=== PATIENT | female | born 1965 | race Caucasian/White ===

== ENCOUNTER → 2017-01-01 | Outpatient (CLI) | payer BC ==
--- NOTE | 2017-01-01 14:43 | MAMMOGRAPHY REPORT ---
UNILATERAL RIGHT DIGITAL DIAGNOSTIC MAMMOGRAM TOMOSYNTHESIS WITH CAD: 01/01/2017 CLINICAL HISTORY: Six-month follow-up of right breast calcifications. The patient also reports inter mittent tenderness in the right upper outer quadrant, which she does not have currently. She denies a ny palpable lumps. TECHNIQUE: Breast tomosynthesis in addition to standard 2D mammography was performed. Current study was also evaluated with a Computer Aided Detection (CAD) system. Right CC and MLO 2-D and tomosynthe sis images and spot magnification right cc and ML views were obtained. COMPARISON: Comparison is made to exams dated: 07/03/2016 mammogram, 06/24/2016 mammogram, 08/29/2015 m ammogram, 08/21/2015 ultrasound, 06/18/2015 mammogram, and 06/08/2013 mammogram - [facility]. BREAST COMPOSITION: The tissue of the right breast is extremely dense, which lowers the sensitivity of mammography. FINDINGS: Spot magnification views of the right breast again demonstrate grouped faint calcification s in the right upper outer quadrant posteriorly. The calcifications are not significantly changed co mpared to spot magnification views dated 07/03/2016, and also appear stable compared to the full field MLO view from the 06/02/2012 exam. Given the long-term stability, the calcifications are considered benign. The remainder of the right breast is stable compared to prior exams, without suspicious masses, calci fications, or areas of architectural distortion noted. Other scattered benign-appearing calcificatio ns are stable, including a small cluster of calcifications in the right upper outer quadrant middle d epth which is stable dating back to at least the 2007 exam. IMPRESSION: ACR BI-RADS CATEGORY 2: BENIGN Grouped calcifications in the right upper outer quadrant posteriorly are stable dating back to the 15 07 exam, and are considered benign given long-term stability. There is no mammographic evidence of m alignancy. Return to routine annual mammogram screening schedule is recommended, due May 2017. Also recommend clinical follow-up for intermittent right breast pain. The patient has been verbally notified of the results. Approximately 10% of breast cancers are not detected with mammography. A negative mammographic report should not delay biopsy if a clinically suggestive mass is present. Angela Castillo M.D. ah/:01/01/2017 11:05:40 Mba Internship: Vicenta Andrews RT(R)(M), [facility] letter sent: Normal /2 BI-RADS Code: ACR BI-RADS Category 2: Benign
== END | disposition home or self-care (01) ==
LOC: C.MAMM 10:34
PROVIDERS: ATTEND Obstetrics & Gynecology
DX: R92.1 Mammographic calcification found on diagnostic imaging of breast (principal)

== ENCOUNTER → 2017-06-26 | Outpatient (CLI) | payer BC ==
--- NOTE | 2017-06-26 13:54 | MAMMOGRAPHY REPORT ---
BILATERAL DIGITAL SCREENING MAMMOGRAM TOMOSYNTHESIS WITH CAD: 06/26/2017 CLINICAL HISTORY: Routine screening. Patient has no complaints. TECHNIQUE: Breast tomosynthesis in addition to standard 2D mammography was performed. Current study was also evaluated with a Computer Aided Detection (CAD) system. COMPARISON: Comparison is made to exams dated: 01/01/2017 mammogram, 06/24/2016 mammogram, 07/03/2016 m ammogram, 08/29/2015 ultrasound biopsy, 08/29/2015 mammogram, and 08/21/2015 ultrasound - [facility]. BREAST COMPOSITION: The tissue of both breasts is extremely dense, which lowers the sensitivity of m ammography. FINDINGS: No suspicious masses, calcifications, or areas of architectural distortion are noted in ei ther breast. There has been no significant interval change compared to prior exams. Bilateral benign -appearing calcifications are not significantly changed. Asymmetry with an associated biopsy marker clip in the left superior breast on the MLO view is stable compared to prior exams. IMPRESSION: ACR BI-RADS CATEGORY 2: BENIGN There is no mammographic evidence of malignancy. A 1 year screening mammogram is recommended. The pa tient will receive written notification of the results. Approximately 10% of breast cancers are not detected with mammography. A negative mammographic report should not delay biopsy if a clinically suggestive mass is present. Angela Castillo M.D. /:06/26/2017 07:45:34 Newspaper Carrier: Zoey Chowdhury [facility] letter sent: Normal 1/2 BI-RADS Code: ACR BI-RADS Category 2: Benign
== END | disposition home or self-care (01) ==
LOC: C.MAMM 07:17
PROVIDERS: ATTEND Obstetrics & Gynecology
DX: Z12.31 Encounter for screening mammogram for malignant neoplasm of breast (principal)

== ENCOUNTER 2018-10-03 13:05 | Inpatient (IN) ==
[2018-10-03] MEDS ORDERED: ACETAMINOPHEN 325 MG TAB PO PRN (13:57)
[2018-10-03] MEDS ORDERED: MAGNESIUM HYDROXIDE SUSP 30 ML UDC PO PRN (13:57)
[2018-10-03] MEDS ORDERED: ONDANSETRON INJ 2 MG/ML 2 ML VIAL IV PRN (13:57)
[2018-10-03] MEDS ORDERED: SODIUM CHLORIDE 0.9% 1000ML 1,000 ML IV SCH (14:00)
[2018-10-03 15:22] LABS: BUN Creatinine Ratio 16.5 (10-20); Creatinine Clr Calc Pharmacy 68.3 ml/min; Est GFR (African American) 102.3; Est GFR (Non-African American) 88.3; Magnesium 1.9 mg/dl (1.8-2.4); Phosphorus 3.1 mg/dl (2.5-4.9); Potassium 3.9 mmol/L (3.5-5.1)
[2018-10-03 15:56] LABS: Beta-Hydroxybutyrate 100.6 mg/dl (0.2-2.81)
[2018-10-03] MEDS ORDERED: SODIUM CHLORIDE 0.45 % 1,000 ML IV SCH (16:00)
[2018-10-03] MEDS ORDERED: PENDING 1/2NSS+40mEq KCL IVF SCH (16:00)
[2018-10-03] MEDS ORDERED: PENDING D5 1/2NS+40mEq KCL IVF SCH (16:00)
[2018-10-03] MEDS ORDERED: PHARMACY GLYCEMIC MGMT CONSULT PRN (16:16)
[2018-10-03] MEDS ORDERED: INSULIN REGULAR 250 UNITS in SODIUM CHLORIDE 0.9% 247.5 ML IV SCH (16:30)
[2018-10-03] MEDS ORDERED: INSULIN HUMAN REGULAR BOLUS IV ONE (16:30)
[2018-10-03 18:31] LABS: BUN Creatinine Ratio 13.7 (10-20); Calcium 8.4 mg/dl (8.5-10.1); Creatinine Clr Calc Pharmacy 70.1 ml/min; Est GFR (African American) 105.7; Est GFR (Non-African American) 91.2; Magnesium 1.7 mg/dl (1.8-2.4); Potassium 3.6 mmol/L (3.5-5.1)
[2018-10-03 18:35] LABS: Phosphorus 1.9 mg/dl (2.5-4.9)
[2018-10-03] MEDS: INSULIN ASPART 100 UNITS/ML 3 ML PEN SC SCH ×2 (18:37→20:44)
--- NOTE | 2018-10-03 19:04 | History & Physical Report ---
Date of Service October 03, 2018 Assessment & Plan (1) DKA (diabetic ketoacidoses): New onset DM A1c pending Reported A1c in 2018 was 5.[address] Schaffer reported UA with 3+ ketones and glucose DKA protocol A1c pending Serial PRP, Mg, Phos Elevated BHA DM education History of Present Illness Primary Care Provider: Suri Farfan, BANK VAULT CLERK 53 y/o F who was sent here by Dr. Schaffer after being seen in the office today and c/o DKA with new onset DM. Pt has been having increased UOP for about 2 weeks. She has been having dry mouth with increased thirst as well. She tried special mouth wash for dry mouth and no help. She has been very fatigued and with decreased ability to do her usual level of work. She has lost 10 lbs in the last month. Pt generally has very good vision s/p Lasix surgery in 2002. She has noted her L eye was having blurred vision most of the time and occasionally her R eye. She was seem by optometry on 09/02 and told there was some sort of retinal issue at that time. She has not had headache, lightheadedness, dizziness, abd pain, n/v/d. She has had minimal appetite. She finally decided to go into the walk in clinic today after she noted ear fullness. It was noted that she had fruity breath. A UA showed glucose and ketones. She was sent to the hospital at that point. Pt is s/p IVF. Insulin has not been started yet. She notes that her ear full ness is resolved. Dr. Schaffer states her exam was WNL. She is still with increased thirst and dry mouth. She has urinated several times. Allergies Allergy/AdvReac Type Severity Reaction Status Date / Time No Known Allergies Allergy Unverified 10/03/18 13:28 Home Medications Home Medications Medication Instructions Recorded Confirmed Type multivitamin 1 tab PO DAILY 10/03/18 10/03/18 History Past Med/Surg History Social History Preferred Language: British Communication Ability: Effective Maritime Officer Required: No Beliefs That Will Affect Care: None Current Living Situation: Spouse Other Information That Helps Us Care for You: No Feels Safe at Home: Yes Safety Concerns: Feels Safe At This Time Smoking Status: Never smoker Hx Alcohol Use: No Hx Substance Use: No Review of Systems Pertinent positives and negatives reviewed in HPI--all others negative Physical Exam Vital Signs (Past 24 Hours): Last Vital Signs Temp 36.5 C 10/03/18 13:23 Pulse 100 H 10/03/18 13:23 Resp 18 10/03/18 13:23 BP 153/92 H 10/03/18 13:23 Pulse Ox 100 10/03/18 13:23 Constitutional: WD/WN, vitals as above Eyes: normal visual garcia by confrontation and + anicteric sclerae Neck: normal visual inspection and trachea midline Respiratory: normal respiratory effort, lungs clear to auscultation Cardiovascular: Rate/Rhythm: regular rate and regular rhythm Gastrointestinal (Abdomen): Inspection/Auscultation: abdomen not distended Percussion/Palpation: abdomen soft; abdomen nontender Musculoskeletal: Head/Neck/Chest: normocephalic and head atraumatic negative for edema, peripheral pulses intact Skin: no rashes, warm and dry Neurologic: awake; not confused Speech / Cognition: normal speech Psychiatric: A+Ox3, euthymic affect Code Status & VTE Plan Code Status Full code VTE Prophylaxis Plan VTE Prophylaxis will be ordered: Yes
[2018-10-03] MEDS: D5W AND 1/2NSS + 40MEQ KCL 40 MEQ/1,000 ML BAG IV SCH (20:48)
[2018-10-03 21:25] LABS: BUN Creatinine Ratio 15.2 (10-20); Calcium 8.1 mg/dl (8.5-10.1); Creatinine Clr Calc Pharmacy 79.8 ml/min; Est GFR (African American) 115.8; Est GFR (Non-African American) 99.9; Magnesium 1.7 mg/dl (1.8-2.4); Potassium 3.1 mmol/L (3.5-5.1)
[2018-10-04 02:42] LABS: BUN Creatinine Ratio 13.4 (10-20); Calcium 7.9 mg/dl (8.5-10.1); Creatinine Clr Calc Pharmacy 75.2 ml/min; Est GFR (African American) 113.6; Magnesium 1.6 mg/dl (1.8-2.4); Phosphorus 2.1 mg/dl (2.5-4.9); Potassium 3.7 mmol/L (3.5-5.1)
[2018-10-04] MEDS ORDERED: INSULIN GLARGINE SOLOSTAR 100 UNITS/ML 3 ML PEN SC ONE (03:30)
[2018-10-04] MEDS: D5W AND 1/2NSS + 40MEQ KCL 40 MEQ/1,000 ML BAG IV SCH (03:47)
[2018-10-04 06:45] LABS: Estimated Average Glucose 324 mg/dl; Hemoglobin A1C 12.9 % (4.5-5.6)
[2018-10-04] MEDS ORDERED: POTASSIUM CHLORIDE 40 MEQ in SODIUM CHLORIDE 0.9% 1000ML 1,000 ML IV SCH (07:00)
[2018-10-04 07:31] LABS: BUN Creatinine Ratio 13.9 (10-20); Calcium 7.7 mg/dl (8.5-10.1); Creatinine Clr Calc Pharmacy 84.8 ml/min; Est GFR (African American) 117.7; Est GFR (Non-African American) 101.5; Magnesium 1.6 mg/dl (1.8-2.4); Phosphorus 2.3 mg/dl (2.5-4.9); Potassium 4.1 mmol/L (3.5-5.1)
[2018-10-04] MEDS: INSULIN ASPART 100 UNITS/ML 3 ML PEN SC SCH ×2 (08:11→11:56)
[2018-10-04] MEDS ORDERED: CLOTRIMAZOLE 10 MG TROCHE BUCCAL STA (09:45)
--- NOTE | 2018-10-04 12:58 | Discharge Summary ---
Date of Service October 04, 2018 Admission HPI Per Admitting Provider 53 y/o F who was sent here by Dr. Schaffer after being seen in the office today and c/o DKA with new onset DM. Pt has been having increased UOP for about 2 weeks. She has been having dry mouth with increased thirst as well. She tried special mouth wash for dry mouth and no help. She has been very fatigued and with decreased ability to do her usual level of work. She has lost 10 lbs in the last month. Pt generally has very good vision s/p Lasix surgery in 2002. She has noted her L eye was having blurred vision most of the time and occasionally her R eye. She was seem by optometry on 09/02 and told there was some sort of retinal issue at that time. She has not had headache, lightheadedness, dizziness, abd pain, n/v/d. She has had minimal appetite. She finally decided to go into the walk in clinic today after she noted ear fullness. It was noted that she had fruity breath. A UA showed glucose and ketones. She was sent to the hospital at that point. Pt is s/p IVF. Insulin has not been started yet. She notes that her ear fullness is resolved. Dr. Schaffer states her exam was WNL. She is still with increased thirst and dry mouth. She has urinated several times. Principal Diagnosis DKA Discharge Exam Constitutional WD/WN, vitals as above Respiratory normal respiratory effort, lungs clear to auscultation Cardiovascular RRR, no murmur, no edema Gastrointestinal (Abdomen) normal bowel sounds, soft, nontender, no hepatosplenomegaly Skin no rashes, warm and dry Psychiatric Orientation: alert and oriented x 3 Eye Contact: + fair eye contact Affect: + tearful affect Discharge Data Allergies Allergy/AdvReac Type Severity Reaction Status Date / Time No Known Allergies Allergy Unverified 10/03/18 13:28 Consultations 10/03/18 13:58 Consult Case Management - Discharge Planning Routine Hospital Course (1) DKA (diabetic ketoacidoses): 53 y/o F sent for direct admission by PCP office for concern of new onset diabetes (reported A1c in 2018 - 5.9). Dr. Schaffer from PCP office reported UA with 3+ ketones and glucose New onset DM with h/o glucose intolerance DKA Noted to have anion gap of 18 with BSG in 347 and Bhydroxybutyrate in 100. Was kept on IV insulin drip and next morning switched to SQ insulin. Will need to follow the course for assessment of whether this is type 1 or type 2. Labs for antibodies, insulin and C peptite levels were not drawn while she was hospitalized Patient very distraught with the diagnosis. Sent home on only basal insulin - 12 units of insulin glargine, glucometer. May need log insulin with meals but not prescribed on discharge as patient seemed overwhelmed at this time to be able to manage all of the needle sticks. Diabetes education done. PCP office care trainer informed and they will be in touch with patient for further education. F/u with pcp in 2 days. Total Time Total Time Spent Total Time Spent (In Minutes): 35 min Discharge Plan Discharge Items Patient Disposition: Home - Self-Care Reason For Visit: DKA Discharge Diagnosis: DKA, New onset Diabetes Discharge Goals: Improve disease control Activity: Resume your previous activity Non-emergency contact: Primary Care Provider Call non-emergency contact if: you have any medication questions Follow-up/Referrals: Suri Farfan CRNP [Primary Care Provider] - Diet: Carb Consistent or DM2 Addtl Provider Instructions: You were admitted for concern of new onset diabetes. Your blood sugars were elevated and you were put on insulin drip here. Your Hemoglobin A1c came at 12. You are being discharged home on insulin which you will give under your skin. Try to stay on a diet with same calories and containing high protein, fat and complex carbohydrate. You will need to check your blood sugar daily first thing in the morning before eating anything and then give yourself the insulin shot. If your blood sugar is lower than 80 - you should cut down the dose of insulin by 4 units. If you blood sugar is higher than 175 in the morning, you will require more insulin but you should contact the doctors office before increasing your insulin dose. You have a follow up appointment at the office with Dr. Chavez on 10/06/18 at 12.50pm. Prescriptions: New Basaglar KwikPen U-100 Insulin 100 unit/mL (3 mL) insulin pen 12 units SQ DAILY Qty: 15 RF: 0 nystatin 100,000 unit/mL suspension 1 ml PO QID 14 Days Qty: 56 RF: 0 Continued multivitamin Tablet 1 tab PO DAILY RF: 0 Stand-Alone Forms: [facility] Discharge Orders: Discharge Order (Routine); Ordered 10/04/18 Ordered By: Sherry Uribe Admission Data Admit Date/Time: 10/03/18 13:10 Attending Provider: Sherry Uribe Admit Provider: Elva Mckeon Primary Care Provider: Suri Farfan Other Providers: Goldy Campbell Service: Telemetry Other Interventions: Discharge Summary Assessment (RN) Last Done: 10/04/18 09:36 DC Date/Time DO NOT enter until pt leaves facility: 10/04/18 12:53
--- NOTE | 2018-10-04 17:59 | Medical Student Progress Note ---
Date of Service October 04, 2018 Assessment & Plan (1) DKA (diabetic ketoacidoses): Assessment: Patient is a 53-year-old female, with no significant PMH, who presented to the [facility] for ear fullness but, on exam, was found to have 3+ ketones/glucose in urine, anion gap of 18, BSG of 347, and BHA of 100 which prompted admission to the hospital for further work-up and treatment. Plan: 1. DKA * New onset DM * A1C is pending (reported A1C was 5.9 in 2018) * DKA protocol - was kept on IV insulin drip and switched to SQ insulin this morning * Discharged home with basal insulin (12 units of insulin glargine) and glucometer * DM Education - completed in hospital * F/U in outpatient clinic - assessment for type 1 vs. type 2, continued DM education Patient seemed very distraught with diagnosis, so only limited information was able to be shared at this time. Subjective Patient is a 53-year-old female, with no significant PMH, who presented to the ED on 10/03/[address] Schaffer who was concerned about new onset diabetes and possible DKA. For the past two weeks, the patient has noticed increased urine production, thirst, fatigue, and dry mouth. She has also noticed a 10 lb weight loss, in addition to some blurry vision bilaterally. After seeing an manager behavioral, who noted some "retinal changes," she decided to go to the [facility]. At the time, she was also having ear fullness. Upon pr esentation, Dr. Schaffer noticed that the patient's breath smelled fruity and, after completing a full history and urinalysis (3+ ketones, glucose), decided to send the patient to the hospital for further diabetes/DKA work-up. Today, the patient is reporting that she is still uncomfortable. She notes that her ear fullness has resolved, but that she is still very thirsty, has a dry mouth, is fatigued, and has blurred vision. She also notes diffuse abdominal pain, which she reports started that morning. She said that she is also feeling nauseous, but has yet to vomit. Overall, she is not feeling much better but attributes that to her lack of sleep overnight. Review of Systems All systems reviewed & are unremarkable except as noted in HPI & below Physical Exam Vital Signs (Past 24 Hours): Last Vital Signs Temp 37.0 C 10/04/18 11:01 Pulse 70 10/04/18 11:01 Resp 16 10/04/18 11:01 BP 107/71 10/04/18 11:01 Pulse Ox 100 10/04/18 11:01 Constitutional: WD/WN, vitals as above + obese, + language barrier (lack of dentures) and cooperative Patient looked uncomfortable in bed and was hesitant to answer questions. No eye contact was made during the physical exam. ENMT: external ear and nose normal, oropharynx normal Neck: trachea midline, no thyromegaly normal visual inspection Respiratory: able to speak in complete sentences and + abnormal respiratory pattern (elongated expiratory phase, increased RR when speaking) Auscultation: lungs clear to auscultation bilaterally Cardiovascular: Rate/Rhythm: regular rate and regular rhythm Heart Sounds: normal S1 and normal S2 Extremities: + edema (1+ lower legs (below knee) bilaterally) Gastrointestinal (Abdomen): Inspection/Auscultation: abdomen normal to inspection and normal bowel sounds Percussion/Palpation: + abdomen tender (soft palpation in epigastric region) and abdomen soft; no hepatosplenomegaly Musculoskeletal: no cyanosis or clubbing, extremities motor strength 5/5 Skin: no rashes, warm and dry + lesion (multiple lesions noted on bilateral lower legs) Neurologic: normal touch/pain/proprioception, moves all extremities and awake Psychiatric: A+Ox3, euthymic affect Orientation: cooperative Eye Contact: + poor eye contact
== END 2018-10-04 12:53 | disposition home or self-care (01) | DRG 639 ==
LOC: 2S 13:10 → SUATTDRO 13:10
DX: E11.10 Type 2 diabetes mellitus with ketoacidosis without coma